=== PATIENT | male | born 1995 | race Caucasian/White ===

== ENCOUNTER → 2020-11-29 16:02 | Outpatient (CLI) | payer OTHER, SELFPAY ==
--- NOTE | ~2020-11-29 | MR_ITS ---
EXAMINATION: MR lumbar spine wo/w con DATE: 11/29/2020 17:16 INDICATION: Lumbago. TECHNIQUE: Magnetic resonance imaging (MRI) of the lumbar spine was performed without and with 15 mL MultiHance intravenous contrast. Sequences included sagittal T2-weighted FSE, sagittal T2-weighted FS FSE, and sagittal and axial T1-weighted FSE. Postcontrast sequences included axial T2-weighted FSE a nd axial and sagittal T1-weighted FS FSE. COMPARISON: None FINDINGS: There is 3 mm anterolisthesis of L5 on S1. There are changes of anterior and posterior fusi on procedures at L5-S1 with interbody devices and pedicle screws. Vertebral body heights and interver tebral disc heights are normal. The distal spinal cord signal intensity is normal. The conus medullar is is at T12-L1. The following disc levels are specifically discussed: L1-L2: The disc does not extend beyond the endplate margin. There is mild bilateral facet joint osteo arthritis. There is no neural foraminal stenosis. There is no central canal stenosis. L2-L3: The disc is mildly bulging. There is mild bilateral facet joint osteoarthritis. There is mild bilateral neural foraminal stenosis. There is no central canal stenosis. L3-L4: There is a left foraminal protrusion. There is mild bilateral facet joint osteoarthritis. Ther e is mild bilateral neural foraminal stenosis. There is no central canal stenosis. L4-L5: The disc is mildly bulging. There is mild bilateral facet joint osteoarthritis. There is mild bilateral neural foraminal stenosis. There is no central canal stenosis. L5-S1: There is moderate bilateral facet joint hypertrophy. There is mild right and moderate left heather ral foraminal stenosis. There is no central canal stenosis. IMPRESSION: 1. Moderate left neural foraminal stenosis at L5-S1. Otherwise mild lumbar spondylosis. 2. Anterior and posterior fusion procedures at L5-S1. Reviewed, dictated and finalized at location A. IMPRESSION: 1. Moderate left neural foraminal stenosis at L5-S1. Otherwise mild lumbar spon dylosis. 2. Anterior and posterior fusion procedures at L5-S1.
[2020-11-29 16:25] LABS: Estimated Glomerular Filt Rate > 60
== END ==
PROVIDERS: PCP Family Medicine; Visit Provider Nurse Practitioner Family
DX: M47.896 Other spondylosis, lumbar region (principal); Z98.1 Arthrodesis status
CPT/HCPCS: 72158; A9577

== ENCOUNTER 2023-01-30 15:02 | Outpatient (CLI) | payer OTHER, SELFPAY ==
[2023-01-30 16:12] LABS: Anion Gap 8 mmol/L (8-16); Blood Urea Nitrogen 17 mg/dL (9-20); Calcium 9.1 mg/dL (8.4-10.2); Carbon Dioxide 27 mmol/L (22-30); Chloride 102 mmol/L (98-107); Cholesterol 170 mg/dL (0-200); Estimated Glomerular Filt Rate > 60; Glucose 92 mg/dL (65-110); HDL Direct 72 mg/dL; Magnesium 2.1 mg/dL (1.6-2.3); Potassium 3.4 mmol/L (3.4-5.0); Sodium 137 mmol/L (137-145); Triglycerides 82 mg/dL (<150)
[2023-01-30 16:24] LABS: LDL Cholesterol Direct 79 mg/dL
[2023-01-30 18:12] LABS: Free T4 Free Thyroxine 0.87 ng/mL (0.78-2.19)
[2023-02-06 15:01] LABS: PRA 2.84 ng/mL/h (0.25-5.82)
[2023-03-12 16:27] LABS: Reference Lab Test Name Norepinephrine
[2023-03-12 16:29] LABS: Reference Lab Test Result 184
[2023-03-12 16:30] LABS: Reference Lab Test Result 88
== END 2023-01-30 15:03 | disposition home or self-care (01) ==
PROVIDERS: PCP Family Medicine
DX: Z76.89 Persons encountering health services in other specified circumstances (principal); I10 Essential (primary) hypertension
CPT/HCPCS: 36415; 80048; 80061; 82088; 82131; 83735; 84244; 84439

== ENCOUNTER 2023-02-05 13:05 | Outpatient (NON) | payer OTHER, SELFPAY ==
[2023-02-11 05:51] LABS: Calculated Total (E+NE) 26 mcg/24 h (26-121); Dopamine, 24hr Urine 386 mcg/24 h (52-480); Norepinephrine, 24hr Urine 26 mcg/24 h (15-100)
== END 2023-02-05 13:06 | disposition home or self-care (01) ==
LOC: ANHLAB 13:07
PROVIDERS: PCP Family Medicine; Visit Provider Internal Medicine Cardiovascular Disease
DX: Z76.89 Persons encountering health services in other specified circumstances (principal); I10 Essential (primary) hypertension
CPT/HCPCS: 82384

== ENCOUNTER 2024-05-08 14:56 | Emergency (ER) | payer BC, SELFPAY ==
--- NOTE | 2024-05-08 14:57 | ED_ITS ---
HPI - URI/Sore Throat General Chief Complaint: Upper Respiratory Infection Stated Complaint: Flu Symptoms Time Seen by Provider: 05/08/24 14:57 Source: patient Mode of arrival: ambulatory Limitations: no limitations History of Present Illness HPI Narrative: Dada is a 28-year-old male patient presenting to the clinic today with complaints of flu-like symptoms. He reports he has had productive cough with green/yellow phlegm, sinus congestion, weakness, shortness of breath on exertion, sweats, and tactile fever. Reports he has had cough and congestion for the past 2 weeks with sinus pressure however over the last 2 days he has developed weakness and shortness of breath with a tactile fever. Related Data Allergies Allergy/AdvReac Type Severity Reaction Status Date / Time No Known Allergies Allergy Verified 05/08/24 15:10 Review of Systems Review of Systems: Pertinent positives per HPI. Patient denies any fever, chills, rash, headache, visual changes, dizziness, sore throat, chest pain, palpitations, nausea, vomiting, diarrhea, constipation, abdominal pain, or any urinary issues. PMFSH Comments At the time of my signature, I reviewed and agree with the nursing past medical, surgical, social, and family history. There is no relevant family history pertinent to the patient complaint. Exam Narrative: General: Well-developed, well nourished, in no apparent distress Head: Normocephalic, atraumatic Eyes: Pupils equally round and reactive to light bilaterally, EOM intact, sclera and conjunctive clear, no discharge, lids normal Ears: Right TMs intact and congested, left TM intact, bulging, red, ear canals clear, no drainage, grossly hearing normal. Nose: Nares patent, green nasal discharge, moderate inflammation, maxillary and frontal sinus tenderness. Mouth: Oropharynx red without lesions or masses, good dentition, MMM. Postnasal drip Neck: Supple, trachea midline, no enlargement of anterior or posterior cervical nodes, no thyroid masses or goiter palpable. Cardio: Regular rate and rhythm, s1 and s2 normal, no murmur appreciated. Resp: Clear to auscultation bilaterally anteriorly and posteriorly, no rhonchi, rales, wheezing or rubs Course Course Emergency Course: Portions of this record may have been created with voice recognition software. Level of Care: Express Care Visit Vital Signs Vital signs: Vital Signs Temperature 37.0 C 05/08/24 15:08 Pulse Rate 91 05/08/24 15:08 Respiratory Rate 16 05/08/24 15:08 Blood Pressure 124/85 05/08/24 15:08 Pulse Oximetry 97 05/08/24 15:08 Temperature 37.0 C 05/08/24 15:08 Pulse Rate 91 05/08/24 15:08 Respiratory Rate 16 05/08/24 15:08 Blood Pressure 124/85 05/08/24 15:08 Pulse Oximetry 97 05/08/24 15:08 Vital signs reviewed MDM - URI/Sore Throat MDM Narrative Medical decision making narrative: At the time of visit patient is resting comfortably on the exam table. Patient appears to be nontoxic. Labs: COVID and influenza testing was performed. COVID testing negative. Influenza testing was positive for influenza A. Plan: I suspect patient has influenza a, sinusitis, bronchitis, and left otitis. Prescription for Augmentin, prednisone, and albuterol inhaler was sent to the pharmacy. Supportive measures were discussed with the patient and they voiced understanding discharge instructions and agrees to treatment plan. Return precautions reviewed Differential Diagnosis Differential diagnosis: Likely upper respiratory infection, croup, otitis media, sinusitis, viral infection, bronchitis, influenza, pharyngitis and other (COVID) Discharge Plan Discharge Clinical Impression: Bronchitis, Acute left otitis media, Influenza A Sinusitis Qualifiers: Sinusitis location: maxillary Chronicity: acute Recurrence: non-recurrent Qualified Code(s): J01.00 - Acute maxillary sinusitis, unspecified Patient Disposition: Home, Self-Care Condition: Stable Instructions: Antibiotic Form, Sinusitis (ED), Influenza (ED), Ear Infection (ED), Acute Bronchitis (ED) Additional Instructions: Influenza A testing is positive in the clinic today. COVID testing is negative. Take prescription medications only as prescribed-albuterol inhaler, prednisone, and Augmentin Increase fluids and stay well hydrated Tylenol/motrin for pain/fever Flonase and OTC antihistamines as directed Vicks vapor rub to open sinuses Sinus rinses for congestion Cepacol spray, cough drops, throat lozenges, warm tea with honey/lemon, gargle salt water to soothe throat BRAT diet for diarrhea Clear liquids x 24 hours then advance as tolerated for nausea/vomiting Go to the ED if you develop a worsening in your condition- high fever not controlled by Tylenol or Motrin, dehydration, weakness, lethargy, shortness of breath, or chest pain. Follow up with your PCP in 3-5 days if symptoms persist. Patient Language: Turkish Prescriptions: New prednisone 20 mg tablet 40 mg PO DAILY 5 Days Qty: 10 0RF albuterol sulfate 90 mcg/actuation HFA aerosol inhaler 2 puff inhalation Q4-6H PRN (Reason: shortness of breath or wheezing) 30 Days Qty: 8.5 0RF amoxicillin-pot clavulanate 875-125 mg tablet 1 tablet PO Q12H 10 Days Qty: 20 0RF Follow-up/Referrals: UNKNOWN,DOCTOR [Non-Staff] - Stand Alone Forms: Work/School Release IP Time of Disposition: 15:18 Quality NIHSS Nursing Documentation ED NIHSS nursing documentation: reviewed/agree
[2024-05-08 15:08] VITALS: BP 124/85; PULSE 91; RESP 16; TEMP 37; O2SAT 97
[2024-05-08 15:24] LABS: EDCOVIDSCREEN Negative (Negative); EDINFLUASCREEN Positive (Negative); EDINFLUBSCREEN Negative (Negative)
== END 2024-05-08 15:21 | disposition home or self-care (01) ==
PROVIDERS: Emergency Provider Nurse Practitioner Family
DX: J40 Bronchitis, not specified as acute or chronic (principal); H66.92 Otitis media, unspecified, left ear; J10.1 Influenza due to other identified influenza virus with other respiratory manifestations; J01.00 Acute maxillary sinusitis, unspecified; Z20.822 Contact with and (suspected) exposure to COVID-19
CPT/HCPCS: 87426; 87804; 99213; G0463